=== PATIENT | female | born 1960 | race African-American/Black ===

== ENCOUNTER 2018-07-18 23:02 | Emergency (ER) | payer SELFPAY ==
[~2018-07-18] VITALS: Ht 167.6 cm; Wt 72.0 kg
[2018-07-18 23:12] VITALS: BP 106/67
== END 2018-07-19 00:17 | disposition left against medical advice (07) ==
LOC: ER 23:43
DX: Z53.21 Procedure and treatment not carried out due to patient leaving prior to being seen by health care provider (principal)